=== PATIENT | female | born 1975 | race Caucasian/White ===

== ENCOUNTER 2016-12-08 09:26 | Emergency (ER) | payer SELFPAY ==
[~2016-12-08] VITALS: Ht 172.7 cm; Wt 65.8 kg
[2016-12-08] MEDS ORDERED: HORMONE REPLACEMENT (09:37)
--- NOTE | 2016-12-08 10:33 | NUR ---
PT IS IN ROOM #2B. DR THAKUR EVALUATED THE PT.
[2016-12-08 10:56] LABS: BASOPHILS % (AUTO) 0.1 % (0.0-2.0); CREATININE 1.4 mg/dL (0.6-1.3); EOSINOPHILS % (AUTO) 0.5 % (0.0-7.0); HEMATOCRIT 43.9 % (37-47); HEMOGLOBIN 14.7 G/DL (12.0-16.0); LYMPHOCYTES # (AUTO) 0.4 K/UL (0.8-4.8); MEAN CORPUSCULAR HEMOGLOBIN 31.2 UUG (27.0-31.0); MEAN CORPUSCULAR HGB CONC 33 g/dL (32.0-37.0); MEAN CORPUSCULAR VOLUME 93.3 FL (81.0-99.0); MONOCYTES # (AUTO) 0.2 K/UL (0.1-1.30); MONOCYTES % (AUTO) 8.1 % (0.0-11.0); NEUTROPHILS # (AUTO) 2.4 K/UL (1.8-8.9); NEUTROPHILS % (AUTO) 77.3 % (38.5-71.5); PLATELET COUNT (AUTO) 155 K/UL (150-450); RED BLOOD CELL COUNT(AUTO) 4.71 MIL/UL (4.2-5.4)
[2016-12-08 11:01] LABS: BILIRUBIN,DIRECT 0.2 mg/dL (0.0-0.2); BILIRUBIN,TOTAL 0.9 mg/dL (0.2-1.0); TOTAL PROTEIN, SERUM 7.6 g/dL (6.4-8.2)
--- NOTE | 2016-12-08 11:38 | NUR ---
PT D/C'D TO HOME AFTER DR THAKUR RE-EVALUATION. D/C INSTRUCTIONS GIVEN TO THE PT.
[2016-12-08 11:39] VITALS: BP 129/81
== END 2016-12-08 11:40 | disposition home or self-care (01) ==
LOC: ER 09:26
DX: B01.9 Varicella without complication (principal)
CPT/HCPCS: 36415; 70030-TC; 83605; 85025; 87040; A4663

== ENCOUNTER 2018-01-06 12:30 | Emergency (ER) | payer SELFPAY ==
[~2018-01-06] VITALS: Ht 172.7 cm; Wt 65.8 kg
[~2018-01-06 12:30] MED LIST: HORMONE REPLACEMENT
--- NOTE | 2018-01-06 13:18 | NUR ---
Patient discharged to home in stable conditon. Written and verbal after care instructions given to patient. Patient verbalizes understanding of instructions.
== END 2018-01-06 13:25 | disposition home or self-care (01) ==
LOC: ER 12:30
DX: M54.6 Pain in thoracic spine (principal); M54.12 Radiculopathy, cervical region; M94.0 Chondrocostal junction syndrome [Tietze]; Z90.710 Acquired absence of both cervix and uterus
CPT/HCPCS: 71045; 93005; A4663

== ENCOUNTER 2018-04-21 21:44 | Emergency (ER) | payer OTHER ==
[~2018-04-21] VITALS: Ht 172.7 cm; Wt 63.5 kg
--- NOTE | 2018-04-21 22:14 | NUR ---
Dr. Parks at bedside for MSE.
[2018-04-21] MEDS ORDERED: MAGNESIUM CITRATE 296 ML BOTTLE ONE (22:39)
[2018-04-21] MEDS ORDERED: MAG HYDROX/AL HYDROX/SIMETH 30 ML LIQUID UDC ONE (22:40)
[2018-04-21] MEDS ORDERED: MAGNESIUM HYDROXIDE 30 ML LIQUID UDC PO ONE (22:45)
[2018-04-21] MEDS ORDERED: MAGNESIUM CITRATE 296 ML BOTTLE PO ONE (22:45)
--- NOTE | 2018-04-21 22:48 | NUR ---
Patient discharged to home in stable conditon. Written and verbal after care instructions given. Patient verbalizes understanding of instructions. Patient ambulated out of ER with steady gait, no acute signs of distress, VSS, all belongings taken.
[2018-04-21 22:49] VITALS: BP 107/70
== END 2018-04-21 22:49 | disposition home or self-care (01) ==
LOC: ER 21:44
DX: K59.00 Constipation, unspecified (principal); Z90.710 Acquired absence of both cervix and uterus
CPT/HCPCS: 74021; A4663

== ENCOUNTER 2018-05-28 18:02 | Emergency (ER) | payer OTHER ==
[~2018-05-28] VITALS: Ht 172.7 cm; Wt 68.0 kg
--- NOTE | 2018-05-28 19:02 | NUR ---
PT WAS EVALUATED BY DR BUCHANAN. PT WAS D/C'd TO HOME. D/C INSTRUCTIONS GIVEN TO THE PT.
[2018-05-28 19:04] VITALS: BP 131/72
== END 2018-05-28 19:06 | disposition home or self-care (01) ==
LOC: ER 18:02
DX: I10 Essential (primary) hypertension (principal); Z90.710 Acquired absence of both cervix and uterus
CPT/HCPCS: A4663

== ENCOUNTER 2021-11-12 13:42 | Emergency (ER) | payer MEDICAID ==
[~2021-11-12] VITALS: Ht 172.7 cm; Wt 65.8 kg
[2021-11-12] MEDS ORDERED: LIDOCAINE 1%-EPI 1:100,000 20 ML VIAL IJ ONE (14:00)
[2021-11-12] MEDS ORDERED: LIDOCAINE 1%-EPI 1:100,000 20 ML VIAL ONE (14:09)
--- NOTE | 2021-11-12 14:45 | NUR ---
Patient discharged to home in stable condition with brisk steady gait. Written and verbal after care instructions given to patient and significant other. Patient and family verbalized understanding and compliance of instructions. Stressed follow up with primary doctor or return to ER for worsening s/s.
== END 2021-11-12 14:44 | disposition home or self-care (01) ==
LOC: ER 13:42
DX: S61.411A Laceration without foreign body of right hand, initial encounter (principal); W26.0XXA Contact with knife, initial encounter; Y93.G9 Activity, other involving cooking and grilling; Y92.89 Other specified places as the place of occurrence of the external cause; Z90.710 Acquired absence of both cervix and uterus; Z79.890 Hormone replacement therapy
CPT/HCPCS: 99282; 12001; J3490; A4663

== ENCOUNTER 2023-04-03 12:08 | Emergency (ER) | payer SELFPAY ==
[~2023-04-03] VITALS: Ht 172.7 cm; Wt 68.0 kg
[2023-04-03 12:27] LABS: BASOPHILS % (AUTO) 0.3 % (0.0-2.0); DIFFERENTIAL COMMENT 0; EOSINOPHILS # (AUTO) 0.1 K/uL (0.0-0.7); EOSINOPHILS % (AUTO) 1.6 % (0.0-7.0); HEMATOCRIT 43.7 % (31.2-41.9); HEMOGLOBIN 14.8 g/dL (10.9-14.3); LYMPHOCYTES # (AUTO) 1.3 K/uL (0.8-4.8); LYMPHOCYTES % (AUTO) 25.4 % (20.5-51.5); MEAN CORPUSCULAR HEMOGLOBIN 33.6 uug (24.7-32.8); MEAN CORPUSCULAR HGB CONC 34 g/dL (32.3-35.6); MEAN CORPUSCULAR VOLUME 98.9 fL (75.5-95.3); MONOCYTES # (AUTO) 0.4 K/uL (0.1-1.30); MONOCYTES % (AUTO) 7.9 % (0.0-11.0); NEUTROPHILS # (AUTO) 3.4 K/uL (1.8-8.9); NEUTROPHILS % (AUTO) 64.8 % (38.5-71.5); PLATELET COUNT (AUTO) 290 K/uL (179-408); RED BLOOD CELL COUNT(AUTO) 4.42 MIL/uL (3.63-4.92); RED CELL DISTRIBUTION WIDTH 13.9 % (12.3-17.7); WHITE BLOOD COUNT (AUTO) 5.2 K/uL (3.8-11.8)
[2023-04-03 12:41] LABS: CREATININE 1.1 mg/dL (0.6-1.3); POTASSIUM 4.8 mmol/L (3.5-5.1)
[2023-04-03 12:47] LABS: ALBUMIN 4.1 g/dL (3.4-5.0); BILIRUBIN,DIRECT 0.1 mg/dL (0.0-0.2); BILIRUBIN,TOTAL 0.6 mg/dL (0.2-1.0); TOTAL PROTEIN, SERUM 7.3 g/dL (6.4-8.2)
[2023-04-03] MEDS ORDERED: POLY17PO4 PO (13:39)
[2023-04-03 14:20] LABS: *BILIRUBIN,URIN NEGATIVE (NEGATIVE); *BLOOD, URINE NEGATIVE (NEGATIVE); *CLARITY,URINE CLEAR (CLEAR); *COLOR,URINE YELLOW (YELLOW); *KETONES,URINE 1+ (NEGATIVE); *PROTEIN,URINE NEGATIVE (NEGATIVE); *UROBILINOGEN,URINE 0.2 E.U./dl (NORMAL); LEUKOCYTE ESTERASE ,URINE NEGATIVE (NEGATIVE); NITRITE, URINE NEGATIVE (NEGATIVE); PH,URINE 5.5 (5.0-8.0); UGLUCOSE NEGATIVE (NEGATIVE)
[2023-04-03 14:53] VITALS: BP 121/66; O2SAT 97
[2023-04-03 15:44] LABS: RBC,URINE 0-3 /HPF (0-3); WBC,URINE 0-3 /HPF (0-3)
[2023-04-03 15:45] LABS: BACTERIA,URINE FEW /HPF (NONE SEEN); SQUAMOUS EPITHELIAL CELL,UR FEW /HPF (NONE SEEN)
== END 2023-04-03 14:54 | disposition home or self-care (01) ==
LOC: ER 12:08
DX: K59.00 Constipation, unspecified (principal); R10.30 Lower abdominal pain, unspecified; Z90.49 Acquired absence of other specified parts of digestive tract; Z79.899 Other long term (current) drug therapy
CPT/HCPCS: 36415; 83690; 85025; A4606; A4663

== ENCOUNTER 2023-10-10 19:21 | Emergency (ER) | payer SELFPAY ==
[~2023-10-10] VITALS: Ht 172.7 cm; Wt 63.5 kg
[~2023-10-10 19:21] MED LIST changes: +POLY17PO4 PO
[2023-10-10 20:46] VITALS: BP 110/70; TEMP 98; O2SAT 98
== END 2023-10-10 20:46 | disposition home or self-care (01) ==
LOC: ER 19:22
DX: G50.8 Other disorders of trigeminal nerve (principal); Z98.890 Other specified postprocedural states; Z90.710 Acquired absence of both cervix and uterus; Z79.899 Other long term (current) drug therapy
CPT/HCPCS: A4606; A4663